=== PATIENT | female | born 1970 | race Caucasian/White ===

== ENCOUNTER → 2019-09-26 | Outpatient (REF) | payer OTHER | LOC: M LAB LCGH 11:31 | PROVIDERS: ATTEND Obstetrics & Gynecology | DX: Z01.419 Encounter for gynecological examination (general) (routine) without abnormal findings (principal) | CPT/HCPCS: 87624; G0123 ==

== ENCOUNTER → 2020-09-05 | Outpatient (CLI) | payer OTHER ==
[~2020-09-05] MED LIST: HYDR-643 PO; LEVO50TA5 PO; LIDOCAINE 1% MDV 20ML VIAL As Ordered ONE; SODIUM BICARBONATE 8.4% INJ 50MEQ 50 ML VIAL As Ordered ONE; TEGR100T3 PO
[2020-09-05 10:30] VITALS: BP 142/81
--- NOTE | 2020-09-05 13:52 | REP ---
INDICATION: LT INFRAAURICULAR/POST AURICILA MASS. COMPARISON: None. TECHNIQUE: The procedure was performed by Radha Vieira [facility], under the direct supervision of Dr. Dumont. The risks and benefits of the procedure were explained to the patient and an informed consent was obtained both verbally and written. Directly prior to the start of the procedure a formal time-out was completed in the procedure room. Using ultrasound guidance the left parotid mass was localized. The skin was prepped and draped in a sterile fashion. Four mL of buffered lidocaine was used as a local anesthetic. FINDINGS: Using ultrasound guidance a 8 fine needle aspirations were obtained using 25 gauge needles of the left parotid mass. Four specimens were sent to our lab here, and remaining 4 were sent out in RPMI solution, for further testing The patient tolerated the procedure well and there were no immediate complications. After the appropriate amount of monitored convalescence the patient was discharged from the department. IMPRESSION: Ultrasound-guided fine needle aspiration of a left parotid mass. <Electronically signed by Radha Vieira > 09/05/20 [id number] <Electronically signed by Lloyd Dumont > 09/05/20 [id number]
== END ==
LOC: M IRPRO 09:19
PROVIDERS: ATTEND Otolaryngology
DX: R22.1 Localized swelling, mass and lump, neck (principal)

== ENCOUNTER → 2020-12-01 | Outpatient (CLI) | payer OTHER ==
[~2020-12-01] MED LIST changes: -LIDOCAINE 1% MDV 20ML VIAL As Ordered ONE; -SODIUM BICARBONATE 8.4% INJ 50MEQ 50 ML VIAL As Ordered ONE
== END ==
LOC: M LABSMTC 08:45
PROVIDERS: ATTEND Anesthesiology
DX: Z01.812 Encounter for preprocedural laboratory examination (principal); Z20.822 Contact with and (suspected) exposure to COVID-19

== ENCOUNTER 2020-12-06 05:58 | Day surgery (SDC) | payer BC ==
[~2020-12-06] VITALS: Ht 157.5 cm; Wt 74.8 kg
[2020-12-06] MEDS ORDERED: LIDOCAINE 1% MDV 20ML VIAL SQ PRN (06:00)
[2020-12-06] MEDS ORDERED: LR 1,000 ML IV ONE (07:00)
[2020-12-06] MEDS ORDERED: dexameTHASONE 4 MG/ML 1ML VIAL (J1100 PER 1MG) IV ONE (07:00)
[2020-12-06] MEDS ORDERED: LIDOCAINE W/EPINEPHRINE 1% 20ML VIAL As Ordered ONE ×2 (07:02→07:48)
[2020-12-06] MEDS ORDERED: BACITRACIN OINTMENT 30GM TUBE As Ordered ONE (07:02)
[2020-12-06] MEDS ORDERED: SUCCINYLCHOLINE 100 MG/5 ML SYRINGE (J0330) As Ordered ONE (07:14)
[2020-12-06] MEDS ORDERED: propofoL 200 MG/20 ML VIAL As Ordered ONE (07:14)
[2020-12-06] MEDS ORDERED: MIDAZOLAM INJ 2MG/2ML VIAL (J2250 PER 1MG) As Ordered ONE (07:14)
[2020-12-06] MEDS ORDERED: fentaNYL 100 MCG/2 ML INJECTION (J3010) As Ordered ONE (07:14)
[2020-12-06] MEDS ORDERED: LIDOCAINE 2% 100MG/5ML SDV (FOR ANES.) As Ordered ONE (07:14)
[2020-12-06] MEDS ORDERED: ONDANSETRON 4MG/2ML VIAL As Ordered ONE (07:14)
[2020-12-06] MEDS ORDERED: dexameTHASONE 4 MG/ML 1ML VIAL (J1100 PER 1MG) As Ordered ONE (07:14)
[2020-12-06] MEDS ORDERED: ePHEDrine SULFATE 25 MG/5 ML(5MG/ML) SYRINGE As Ordered ONE (08:22)
[2020-12-06] MEDS ORDERED: ACETAMINOPHEN 1000MG 100ML IV BTL (OFIRMEV) (J0131 PER 10MG) As Ordered ONE (08:26)
[2020-12-06] MEDS ORDERED: HYDROmorphone HCL 2 MG/ML 1ML VIAL (J1170) As Ordered ONE (08:27)
[2020-12-06] MEDS ORDERED: METHYLENE BLUE 0.5% (5MG/ML) 10 ML AMP (PROVAYBLUE) As Ordered ONE (09:26)
[2020-12-06] MEDS ORDERED: EPINEPHrine 1MG/ML INJ 30ML MD-VIAL As Ordered ONE (09:26)
[2020-12-06] MEDS ORDERED: ONDANSETRON 4MG/2ML VIAL IV PRN ×2 (12:00→14:15)
[2020-12-06] MEDS ORDERED: oxyCODONE 5MG TAB PO PRN (12:00)
[2020-12-06] MEDS ORDERED: LR 1,000 ML IV SCH ×2 (12:00)
[2020-12-06] MEDS ORDERED: fentaNYL 100 MCG/2 ML INJECTION (J3010) IV PRN (12:00)
[2020-12-06 16:00] VITALS: BP 115/69
--- NOTE | 2020-12-11 13:33 | RO ---
OPERATIVE NOTE DATE OF OPERATION: 12/06/2020 PREOPERATIVE DIAGNOSIS: Left parotid mass. POSTOPERATIVE DIAGNOSIS: Left parotid mass. PROCEDURE PERFORMED: Left superficial parotidectomy with preservation of the facial nerve and intraoperative nerve monitoring using the Nerveana system. SURGEON: Rigo Hidalgo MD. HOGSHEAD STRIPPER: Uma Dorantes MD. ANESTHESIA: General without use of paralytic. CLINICAL PREAMBLE: This 50-year-old woman presented to the office with a mass in the parotid region just below the ear lobule. FNA aspiration showed atypical cytology. Management options, including surgery listed above, have been discussed with the patient. She understood and consented to the procedure. DESCRIPTION OF PROCEDURE: Patient was identified in preholding and brought to the operating room in stable condition. In the supine position on the operating table, patient received general anesthesia followed by orotracheal intubation without incident. The test electrodes were connected to the lateral canthus region and the left lip commissure area. Groin electrode was also attached to the shoulder. A forehead electrode was also placed. Electrodes were then successfully connected to the Nerveana, and good electrode signals were obtained upon tapping of the respective monitored region of the left face which remained expose throughout the entire case. The left eye was lubricated and taped by using Tegaderm. At this time, patient was prepped and draped in the usual fashion for the procedure. The modified Reyes incision was outlined over the left parotid region. The proposed incision was infiltrated with 1% lidocaine with 1:100,000 epinephrine. Skin incision was made through the subcutaneous tissues down to the level of the parotid fascia in the pretracheal region and down to the supraplatysmal plane inferiorly. The skin flap was then developed along the parotid fascia plane up to the anterior border of the palpable left parotid mass. The posterior margin of the parotid mass was found to be abutting against the cartilaginous portion of the left external auditory canal. The parotid mass was carefully dissected off from the left external auditory canal cartilage. The tragal pointer was identified and carefully dissected. The tail of the parotid was then dissected off from the underlying sternocleidomastoid muscle. Additional dissection was carried out in the superior border of the anterior portion of the left sternocleidomastoid muscles and was carried out to identify the posterior belly of the digastric muscle. At this time, the pes anserinus of the left facial nerve was successfully identified approximately 1 cm anterior and deep to the left tragal pointer at the depth of the left posterior belly of digastric muscle. The facial nerve was then carefully followed and dissected to the first major bifurcation point. The parotid mass was mostly in the lower bifurcation of the facial nerve. Careful dissection was carried out to identify and preserve the lower three branches of the facial nerve. The retromandibular vein was identified and carefully preserved. The entire left parotid mass was then successfully excised with at least a centimeter of margin around the entire specimen. Hemostasis was achieved by using electrocautery. A quarter inch Alexandre was placed into the surgical site. The skin incision was then closed in two layers. The deep layer was reapproximated using 3-0 Vicryl. The skin incision was closed using 5-0 Prolene. The Alexandre drain was secured with a 3-0 Vicryl as well. A mattress suture was fashioned around the Alexandre drain site. At this time, a compressive dressing was applied over the left parotid bed with the use of a facelift elastic band. At the end of the procedure, sponge and instrument counts were correct. No complication was encountered. Estimated blood loss was less than 10 mL. General anesthesia was reversed, and patient was extubated and brought to the recovery room in stable condition. In the recovery area, patient exhibited full and symmetrical facial motion.
== END 2020-12-06 16:20 | disposition home or self-care (01) ==
LOC: M SDC 05:58
PROVIDERS: ATTEND Otolaryngology
DX: C77.0 Secondary and unspecified malignant neoplasm of lymph nodes of head, face and neck (principal); E03.9 Hypothyroidism, unspecified; R29.818 Other symptoms and signs involving the nervous system; R56.9 Unspecified convulsions; Z79.899 Other long term (current) drug therapy; Z90.49 Acquired absence of other specified parts of digestive tract
CPT/HCPCS: 42415; 81025; 88307; J0131; J0330; J0697; J1100; J1170; J2250; J2405; J3010; Q9968

== ENCOUNTER → 2021-01-07 | Outpatient (CLI) | payer BC ==
--- NOTE | 2021-01-07 17:55 | REP ---
INDICATION: STAGING CANCER OF PAROTID GLAND. COMPARISON: Comparison is made with soft tissue neck ultrasound and CT studies from [facility] dated August 07 and August 10, 2020 respectively. On 05 September 2020, the patient underwent ultrasound-guided needle biopsy. Patient underwent left-sided superficial peritonectomy on 06 December 2020. 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 TECHNIQUE: Fifty-four minutes following the intravenous injection of a 15.05 mCi dose of F-18 FDG, three-dimensional PET scintigraphy is acquired from the skull base to the proximal thighs. Triplanar noncontrast CT scanning is acquired through the same anatomic range for attenuation correction, and image registration with scan parameters optimized to minimize radiation exposure to the patient. PET scintigraphy and CT datasets were fused and displayed on a workstation with multiplanar and projection display capability. FINDINGS: There is an ill-defined area of mildly hypermetabolic uptake at the level of the left parotid gland posterior and inferior to the left ear. This may be postoperative uptake but I cannot exclude residual intraparotid disease. If this is a concern, repeat sonography may help as the disease was originally more conspicuous on ultrasound and CT. There is no evidence of hypermetabolic cervical lymphadenopathy on either side. No other abnormal uptake is seen in the head and neck. there are dense calcifications in the thyroid lobes, 1 on each side. There is no abnormal hypermetabolic uptake within the chest. No abnormal pulmonary parenchymal or hilar or mediastinal jessica uptake is seen. In the abdomen and pelvis, there is normal hepatic, gastrointestinal, splenic, and genitourinary distribution. No suspicious uptake is seen in the abdomen or pelvis. IMPRESSION: There is uptake at the operative site in the left parotid gland of uncertain significance. There is no evidence to suggest distant or regional metastatic disease. Otherwise negative PET-CT study. <Electronically signed by Lloyd Dumont > 01/07/21 [id number]
== END ==
LOC: M PLARAD 08:41
PROVIDERS: ATTEND Physician Assistant Medical
DX: C07 Malignant neoplasm of parotid gland (principal)
CPT/HCPCS: 78815; A9552

== ENCOUNTER → 2021-01-15 | Outpatient (CLI) | payer BC ==
--- NOTE | 2021-01-15 11:35 | RADONC.CN ---
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 She is seen following superficial left parotidectomy with Dr. Hidalgo on 12/06/20 for consideration of adjuvant RT. Diagnosis/Treatment History Oncologic History Early patient noted a pea-sized lump posterior to the left ear. In time this grew and as of late 2019 it had recently and rapidly grown to a large bi- lobed mass, prompting ENT evaluation. Biopsy on 09/05/20 was non-diagnostic with atypical cells. Left superficial parotidectomy was performed on 12/06/20 (see pathology below). PET-CT was performed on 01/07/21 and was negative for distant disease. 12/06/20 Pathology: Left parotid, mass, superficial parotidectomy: Low grade myoepithelial carcinoma arising in a pleomorphic adenoma (carcinoma ex-pleomorphic adenoma). Tumor size: 2.0 x 2.0cm. Lymphovascular invasion not identified. Perineural invasion not identified. Margins are uninvolved by carcinoma. 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 Comment: EWSR-1 rearrangement has been associated with more aggressive behavior in myoepithelial carcinomas of salivary glands. The original diagnosis remains unchanged. Interval History She is here with her today. She is very emotional and worried. She reports she has some residual sensory changes in the lower portion of the left ear and over the incision. She has no pain however, no change in facial function. Appetite good and weight stable. She does get annual screening mammograms. Past Medical History: Asthma Past Surgical History: As above Family History: Mother breast cancer Social History: Never smoker Does not drink Allergies / Meds Allergies: Coded Allergies: No Known Allergies (Unverified , 11/29/20) Home Meds Reported Medications Hydroxyzine HCl (Hydroxyzine HCl) 10 Mg Tablet, 10 MG PO BID for 30 Days, #60 TAB 09/05/20 Carbamazepine (Tegretol Xr) 100 Mg Tab.er.12h, MG PO BID for 30 Days, #60 TAB 09/05/20 Levothyroxine Sodium (LEVOTHYROXINE SODIUM) 50 Mcg Tablet, 25 MCG PO DAILY for 30 Days, #30 TAB 09/05/20 Review of Systems General: Reports: Normal Appetite Constitutional: Denies: Chills, Fever, Night Sweats Eyes: Denies: Pain, Vision change HEENT: Denies: Head Aches, Dysphagia, Sore Throat Skin: Denies: Rash, Lesions, Bruising Pulmonary: Denies: Dyspnea, Cough Cardiovascular: Denies: Chest Pain, Palpitations, Edema Gastrointestinal: Denies: Nausea, Vomiting, Abdominal Pain, Diarrhea Genitourinary: Denies: Dysuria, Frequency, Incontinence Hematologic: Denies: Bruising, Petecchia, Enlarged Lymph Nodes Musculoskeletal: Denies: Neck pain, Back pain Neurological: Denies: Weakness, Numbness, Incoordination Psych: Reports: Mood Normal; Denies: Memory Issues, Thoughts of Self Harm Vital Signs Ht 62" Wt 162 lbs BMI 29 T 97.8 P 89 RR 18 BP 165/84 O2 98% Pain 0 Fatigue 0 General Exam: Positive: Alert, Cooperative, No Acute Distress Eye Exam: Positive: PERRLA, EOMI ENT EXAM: Positive: Mucous membr. moist/pink, Pharynx Normal; Negative: Atraumatic (Well-healed left neck incision posterior and inferior to the left ear. ) Neck Exam: Positive: Supple; Negative: Lymphadenopathy Chest Exam: Positive: Clear to auscultation Heart Exam: Positive: Rate Normal Abdomen Exam: Positive: Soft Extremity Exam: Negative: Edema Skin Exam: Positive: Nl turgor and temperature Neuro Exam: Positive: Normal Gait, Normal Speech, Cranial Nerves 3-12 NL Psych Exam: Positive: Mental status NL Diagnostic and Laboratory Diagnostic Review Radiologic images, relevant labs and pathology reports were personally reviewed and discussed with Ms. Davidson. Assessment and Plan Impression Ms. 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 She is seen following superficial left parotidectomy with Dr. Hidalgo on 12/06/20 for consideration of adjuvant RT. Stage Left parotid myoepithelial carcinoma low-grade [id number] stage I Performance Status ECOG 0 Plan We had an extensive discussion with Ms. Davidson regarding the diagnosis at hand and available therapeutic options. I reviewed her pathology in detail with her. The cancer was T1, removed completely (albeit with a close margin noted <0.2 mm), was low-grade, and had no LVSI or PNI, and thus none of the usual indications for adjuvant RT. 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 Thus I recommended that she forego RT at this time, as there are numerous series that suggest a low risk of recurrence of low grade parotid neoplasms managed surgically, even with close margin, in particular for this histology, and for ex-adenoma carcinomas more broadly as well. This would spare her significant morbidity in the face of uncertain benefit. I did explain the importance of close clinical follow up for this disease, which could be with Dr. Hidalgo, and I explained that the most significant risk of recurrence is local recurrence, thus awareness of any changes in the surgical bed would be important to note and bring physician attention. If cancer were to recur locally, then surgery followed by adjuvant RT (regardless of final pathology) would be indicated. I offered to follow her in parallel, but she preferred to see Dr. Hidalgo exclusively, which is entirely reasonable to me. After discussing the risks, benefits and alternatives to radiation therapy, Ms. Davidson was amenable to foregoing radiotherapy. All questions were answered to the patient's satisfaction. We instructed the patient that if there were any questions,concerns or changes in clinical status in the interim to contact us. Recommendations Observation No firm indications for adjuvant RT Patient opts to follow with Dr. Hidalgo, thus can follow up with me only as needed Billing Statement Total time of [40] minutes was spent preparing for the visit [2], obtaining HPI [5], examining the patient [3], reviewing diagnostic tests [3], discussing management options [15], coordinating care [0], and writing this note [12]. PARIS PAUL MD Jan 15, 2021 11:35
== END ==
LOC: M ONCR 09:45
PROVIDERS: ATTEND General Practice
DX: C07 Malignant neoplasm of parotid gland (principal)